=== PATIENT | female | born 1970 | race Caucasian/White ===

== ENCOUNTER 2020-08-15 23:01 | Inpatient (IN) | payer BC ==
[2020-08-15] MEDS ORDERED: Ondansetron 4 MG Tab.DIS PO ONE (23:06)
--- NOTE | 2020-08-15 23:25 | EDM.PDOC ---
ED HPI GENERAL MEDICAL PROBLEM - General Chief Complaint: General Stated Complaint: doesn't feel well Time Seen by Provider: 08/15/20 23:04 Source of Information: Reports: Patient History Limitations: Reports: No Limitations - History of Present Illness INITIAL COMMENTS - FREE TEXT/NARRATIVE: This patient is a 50 year old female that presents to the ER. Patient reports that started 2 days ago with fever, body aches, frontal headache. She reports today started with sinus pressure, congestion. Patient reports also the past 2 days having upper abdominal pain RUQ, LUQ. She reports with it is nausea and dry heaves. She reports she can not vomit due to hiatal hernia. She also reports having diarrhea today. Patient reports that on the 18 of July having back pain and dysuria that felt like a UTI like she has had before. Patient reports that she saw PCP and UA was negative. She reports about 2 weeks later she continued to have the symptoms and saw PCP again and UA was negative, so was placed on vaginal estrogen at that time. Patient reports she continues to have this lower back pain, but denies all other urinary symptoms at this time. Patient reports she has been taking Tylenol and ASA for her fever. She reports fever as high as 103 measured at home earlier. Onset Date: 08/13/20 Duration: Day(s): (2) Location: Reports: Face, Abdomen, Back, Generalized Quality: Reports: Ache, Pressure Severity: Moderate Improves with: Reports: None Worsens with: Reports: None Associated Symptoms: Reports: Fever/Chills, Headaches, Malaise, Nausea/Vomiting. Denies: Confusion, Chest Pain, Cough, cough w sputum, Diaphoresis, Loss of Appetite, Rash, Seizure, Shortness of Breath, Syncope, Weakness Treatments MANAGER OPERATING: Reports: Acetaminophen, Aspirin - Related Data Allergies Allergy/AdvReac Type Severity Reaction Status Date / Time meperidine HCl [From Demerol] Allergy Hives Verified 08/15/20 23:07 Home Meds: Home Meds Cholecalciferol (Vitamin D3) [Vitamin D] 2,000 units PO DAILY 10/15/13 [History] Fluticasone Propionate [Flonase] 2 sprays NASBOTH DAILY 10/15/13 [History] Hydrochlorothiazide 25 mg PO DAILY 10/15/13 [History] Levothyroxine Sodium [Synthroid] 150 mcg PO DAILY 10/15/13 [History] Lubiprostone [Amitiza] 8 mcg PO BID 08/15/20 [History] estradioL [Estradiol] 0.1 mg VAG DAILY 08/15/20 [History] Past Medical History Endocrine/Metabolic History: Reports: Hypothyroidism - Infectious Disease History Infectious Disease History: Reports: None - Past Surgical History GI Surgical History: Reports: Cholecystectomy, Hernia Repair/Other Female Surgical History: Reports: Section, Hysterectomy, Other (See Below) Other Female Surgeries/Procedures: bladder/rectum repair Social & Family History - Tobacco Use Tobacco Use Status *Q: Never Tobacco User - Caffeine Use Caffeine Use: Reports: Coffee, Soda - Recreational Drug Use Recreational Drug Use: No ED ROS GENERAL - Review of Systems Review Of Systems: See Below Constitutional: Reports: Fever, Chills, Malaise HEENT: Reports: Sinus Problem Respiratory: Reports: No Symptoms Cardiovascular: Reports: No Symptoms Endocrine: Reports: No Symptoms GI/Abdominal: Reports: Abdominal Pain, Diarrhea, Nausea. Denies: Vomiting : Denies: Dysuria, Frequency, Hematuria, Incontinence, Pain, Urgency, Urinary Retention Musculoskeletal: Reports: Back Pain (lower), Muscle Pain (generalized body aches) Skin: Reports: No Symptoms Neurological: Reports: Headache (frontal). Denies: Confusion, Dizziness, Numbness, Seizure, Syncope, Tingling, Tremors, Trouble Speaking, Difficulty Walking, Weakness, Change in Speech, Gait Disturbance Psychiatric: Reports: No Symptoms Hematologic/Lymphatic: Reports: No Symptoms Immunologic: Reports: No Symptoms ED EXAM, GENERAL - Physical Exam Exam: See Below Exam Limited By: No Limitations General Appearance: Alert, WD/WN, No Apparent Distress Eye Exam: Bilateral Eye: Normal Inspection, PERRL Ears: Normal External Exam, Normal Canal, Hearing Grossly Normal, Normal TMs Ear Exam: Bilateral Ear: Auricle Normal, Canal Normal, TM normal Nose: Normal Inspection, Normal Mucosa, No Blood Throat/Mouth: Normal Inspection, Normal Lips, Normal Teeth, Normal Gums, Normal Oropharynx, Normal Voice, No Airway Compromise Head: Atraumatic, Normocephalic, Sinus Tenderness (mild maxillary bilaterally) Neck: Normal Inspection, Supple, Non-Tender, Full Range of Motion Respiratory/Chest: No Respiratory Distress, Lungs Clear, Normal Breath Sounds, No Accessory Muscle Use Cardiovascular: Normal Peripheral Pulses, Regular Rate, Rhythm, No Edema, No Gallop, No JVD, No Murmur, No Rub Peripheral Pulses: 2+: Radial (L), Radial (R), Posterior Tibial (L), Posterior Tibial (R) GI/Abdominal: Normal Bowel Sounds, Soft, Non-Tender, No Organomegaly, No Distention, No Abnormal Bruit, No Mass, Pelvis Stable. No: Guarding, Rigid, Rebound, Tender (Female) Exam: Deferred Rectal (Female) Exam: Deferred Back Exam: Normal Inspection, Full Range of Motion, CVA Tenderness (L), CVA Tenderness (R) Extremities: Normal Inspection, Normal Range of Motion, Non-Tender, No Pedal Edema, Normal Capillary Refill Neurological: Alert, Oriented, Normal Cognition, Normal Gait, No Motor/Sensory Deficits Psychiatric: Normal Affect, Normal Mood Skin Exam: Warm, Dry, Intact, Normal Color, No Rash Lymphatic: No Adenopathy Course - Vital Signs Last Recorded V/S: Last Vital Signs Temp 98.4 F 08/15/20 23:01 Pulse 78 08/15/20 23:01 Resp 16 08/15/20 23:01 BP 98/52 L 08/16/20 00:03 Pulse Ox 97 08/15/20 23:01 - Orders/Labs/Meds Orders: Active Orders 24 hr Category Date Time Status CULTURE BLOOD [BC] Stat Lab 08/15/20 23:36 Received CULTURE BLOOD [BC] Stat Lab 08/15/20 23:36 Received CULTURE URINE [RM] Stat Lab 08/15/20 23:05 Received Blood Culture x2 Reflex Set [OM.PC] Stat Oth 08/15/20 23:04 Ordered Labs: Laboratory Tests 08/15/20 08/15/20 08/15/20 Range/Units 23:04 23:04 23:04 WBC 11.2 H (4.0-11.0) 10^3/uL RBC 3.83 L (4.00-5.50) x10^6/uL Hgb 10.5 L (12.0-16.0) g/dL Hct 31.8 L (37.0-47.0) % MCV 83.0 (83.0-97.0) fL MCH 27.4 (27.0-32.0) pg MCHC 33.0 (32.0-36.0) g/dL RDW Coeff of Sherley 13.1 (11.0-15.0) % Plt Count 179 (150-400) 10^3/uL Immature Gran % (Auto) 0.3 (0.0-4.9) % Neut % (Auto) 77.9 H (41-71) % Lymph % (Auto) 10.4 L (24-44) % Clare % (Auto) 11.1 H (0-10) % Eos % (Auto) 0.1 (0-6) % Baso % (Auto) 0.2 (0-1) % Neut # (Auto) 8.72 H (1.80-8.00) x10^3/uL Lymph # (Auto) 1.16 (0.60-5.00) 10^3/uL Clare # (Auto) 1.24 (0.00-1.50) 10^3/uL Eos # (Auto) 0.01 (0.00-1.50) 10^3/uL Baso # (Auto) 0.02 (0.00-0.50) 10^3/uL Immature Gran # (Auto) 0.03 (0.00-0.49) 10^3/uL Sodium 137 (136-145) mEq/L Potassium 2.8 L* D (3.5-5.0) mEq/L Chloride 98 (98-106) mEq/L Carbon Dioxide 30 (21-32) mmol/L BUN 10 (7-18) mg/dL Creatinine 0.9 (0.6-1.0) mg/dL Est Cr Clr Drug Dosing 71.91 mL/min Estimated GFR (MDRD) > 60 (>=60) mL/min Glucose 107 H (75-99) mg/dL Lactic Acid 1.0 (0.4-2.0) mmol/L Calcium 8.1 L (8.4-10.1) mg/dL Magnesium (1.8-2.4) mg/dL Total Bilirubin 0.5 (0.0-1.0) mg/dL AST 16 (15-37) U/L ALT 20 (12-78) U/L Alkaline Phosphatase 86 (46-116) U/L Total Protein 6.5 (6.4-8.2) g/dL Albumin 3.1 L (3.4-5.0) g/dL Amylase 26 (25-115) U/L Lipase 48 L (73-393) U/L Urine Color (YELLOW) Urine Appearance (CLEAR) Urine pH (4.5-8.0) Ur Specific [place] (1.003-1.020) Urine Protein (NEGATIVE) mg/dL Urine Glucose (UA) (NEGATIVE) mg/dL Urine Ketones (NEGATIVE) mg/dL Urine Occult Blood (NEGATIVE) Urine Nitrite (NEGATIVE) Urine Bilirubin (NEGATIVE) Urine Urobilinogen (0.2-1.0) EU/dL Ur Leukocyte Esterase (NEGATIVE) Urine RBC (0-5) /HPF Urine WBC (0-5) /HPF Urine Bacteria (NOT SEEN) /HPF Urinalysis Comment SARS CoV-2 RNA Rapid LORENA (NEGATIVE) 08/15/20 08/15/20 08/15/20 Range/Units 23:05 23:36 23:45 WBC (4.0-11.0) 10^3/uL RBC (4.00-5.50) x10^6/uL Hgb (12.0-16.0) g/dL Hct (37.0-47.0) % MCV (83.0-97.0) fL MCH (27.0-32.0) pg MCHC (32.0-36.0) g/dL RDW Coeff of Sherley (11.0-15.0) % Plt Count (150-400) 10^3/uL Immature Gran % (Auto) (0.0-4.9) % Neut % (Auto) (41-71) % Lymph % (Auto) (24-44) % Clare % (Auto) (0-10) % Eos % (Auto) (0-6) % Baso % (Auto) (0-1) % Neut # (Auto) (1.80-8.00) x10^3/uL Lymph # (Auto) (0.60-5.00) 10^3/uL Clare # (Auto) (0.00-1.50) 10^3/uL Eos # (Auto) (0.00-1.50) 10^3/uL Baso # (Auto) (0.00-0.50) 10^3/uL Immature Gran # (Auto) (0.00-0.49) 10^3/uL Sodium (136-145) mEq/L Potassium (3.5-5.0) mEq/L Chloride (98-106) mEq/L Carbon Dioxide (21-32) mmol/L BUN (7-18) mg/dL Creatinine (0.6-1.0) mg/dL Est Cr Clr Drug Dosing mL/min Estimated GFR (MDRD) (>=60) mL/min Glucose (75-99) mg/dL Lactic Acid (0.4-2.0) mmol/L Calcium (8.4-10.1) mg/dL Magnesium 1.9 (1.8-2.4) mg/dL Total Bilirubin (0.0-1.0) mg/dL AST (15-37) U/L ALT (12-78) U/L Alkaline Phosphatase (46-116) U/L Total Protein (6.4-8.2) g/dL Albumin (3.4-5.0) g/dL Amylase (25-115) U/L Lipase (73-393) U/L Urine Color Yellow (YELLOW) Urine Appearance Clear (CLEAR) Urine pH 6.0 (4.5-8.0) Ur Specific [place] 1.010 (1.003-1.020) Urine Protein Negative (NEGATIVE) mg/dL Urine Glucose (UA) Negative (NEGATIVE) mg/dL Urine Ketones Negative (NEGATIVE) mg/dL Urine Occult Blood Trace-intact H (NEGATIVE) Urine Nitrite Positive H (NEGATIVE) Urine Bilirubin Negative (NEGATIVE) Urine Urobilinogen 0.2 (0.2-1.0) EU/dL Ur Leukocyte Esterase Small H (NEGATIVE) Urine RBC 0-5 (0-5) /HPF Urine WBC 30-40 H (0-5) /HPF Urine Bacteria Moderate H (NOT SEEN) /HPF Urinalysis Comment SARS CoV-2 RNA Rapid LORENA Negative (NEGATIVE) Meds: Medications Discontinued Medications Generic Name Dose Route Start Last Admin Trade Name Freq PRN Reason Stop Dose Admin Ondansetron HCl 4 mg 08/15/20 23:06 08/15/20 23:16 Ondansetron 4 Mg Tab.Dis PO 08/15/20 23:07 4 mg ONETIME ONE Administration - Re-Assessments/Exams Free Text/Narrative Re-Assessment/Exam: 08/16/20 00:33 Patietn is nitrate positive. Her BP is low for her, she has a fever, CVA tenderness, elevated wbc, I believe she could be uroseptic with possible pylonephritis. Departure - Departure Time of Disposition: 00:34 Disposition: DC/Tfer to Acute Hospital 02 Condition: Fair Clinical Impression: UTI, Urinary tract infectious disease, Pyelonephritis, Hypokalemia Sepsis Qualifiers: Sepsis type: sepsis due to unspecified organism Sepsis acute organ dysfunction status: with acute organ dysfunction Severe sepsis acute organ dysfunction type: unspecified Severe sepsis shock status: without septic shock Qualified Code(s): A41.9 - Sepsis, unspecified organism; R65.20 - Severe sepsis without septic shock - Discharge Information *PRESCRIPTION DRUG MONITORING PROGRAM REVIEWED*: Not Applicable *COPY OF PRESCRIPTION DRUG MONITORING REPORT IN PATIENT OSCAR: Not Applicable Forms: ED Department Discharge Sepsis Event Note (ED) - Evaluation Sepsis Screening Result: No Definite Risk - Focused Exam Vital Signs: Vital Signs Temp Pulse Resp BP Pulse Ox 08/16/20 00:03 98/52 L 08/15/20 23:01 98.4 F 78 16 108/54 L 97 - My Orders Last 24 Hours: My Active Orders 08/15/20 23:04 Blood Culture x2 Reflex Set [OM.PC] Stat 08/15/20 23:05 CULTURE URINE [RM] Stat 08/15/20 23:36 CULTURE BLOOD [BC] Stat CULTURE BLOOD [BC] Stat - Assessment/Plan Last 24 Hours: My Active Orders 08/15/20 23:04 Blood Culture x2 Reflex Set [OM.PC] Stat 08/15/20 23:05 CULTURE URINE [RM] Stat 08/15/20 23:36 CULTURE BLOOD [BC] Stat CULTURE BLOOD [BC] Stat Plan: PLEASE SEE RN NOTE FOR PFSH PLEASE USE ADMIT H&P ADMIT H&P.
[2020-08-15 23:43] LABS: CHLORIDE,CL 98 mEq/L (98-106); SODIUM,NA 137 mEq/L (136-145)
[2020-08-16] MEDS ORDERED: Potassium Chloride 10 MEQ Tab.ER PO STA ×2 (00:55→09:29)
[2020-08-16] MEDS ORDERED: Ondansetron 4 MG/2 ML SDV IV PRN (00:55)
[2020-08-16] MEDS ORDERED: Sodium Chloride 0.9% 1,000 ML IV SCH ×2 (00:55)
[2020-08-16] MEDS ORDERED: Morphine 2 MG/ML SYRINGE IVPUSH PRN (00:55)
[2020-08-16] MEDS: Levofloxacin/Dextrose 5%-Water 750 MG in Premix Bag 1 BAG IV SCH (01:14)
[2020-08-16] MEDS: Acetaminophen/HYDROcodone 325-5 MG Tab PO PRN ×2 (03:36→07:47)
[2020-08-16] MEDS: Levothyroxine 150 MCG Tab PO SCH (06:11)
[2020-08-16] MEDS: Cholecalciferol (Vitamin D3) 25 MCG Tab PO SCH (07:47)
[2020-08-16] MEDS: Potassium Chloride 10 MEQ Tab.ER PO SCH ×2 (07:47→17:14)
[2020-08-16 07:50] LABS: CHLORIDE,CL 102 mEq/L (98-106); SODIUM,NA 138 mEq/L (136-145)
[2020-08-16] MEDS: Hydrochlorothiazide 25 MG Tab PO SCH (07:50)
[2020-08-16] MEDS ORDERED: Fluticasone Propionate Nasal Spray 16 GM Bottle NASBOTH SCH (08:00)
[2020-08-16] MEDS: Fluticasone Propionate Nasal Spray 16 GM Bottle**OWN MED NASBOTH SCH (09:34)
--- NOTE | 2020-08-16 09:51 | PCM.PN ---
- General Info Date of Service: 08/16/20 Functional Status: Reports: Pain Controlled (with pain medication), Tolerating Diet, Ambulating, Urinating - Review of Systems General: Denies: Fever (not this morning) HEENT: Reports: Sinus Congestion (frontal sinus pressure) Pulmonary: Reports: No Symptoms Cardiovascular: Reports: No Symptoms Gastrointestinal: Reports: Abdominal Pain, Nausea. Denies: Vomiting Genitourinary: Reports: Flank Pain (bilateral) Musculoskeletal: Reports: No Symptoms Skin: Reports: No Symptoms Neurological: Reports: No Symptoms Psychiatric: Reports: No Symptoms - Patient Data Vitals - Most Recent: Last Vital Signs Temp 98.8 F 08/16/20 08:00 Pulse 76 08/16/20 08:00 Resp 18 08/16/20 08:00 BP 103/53 L 08/16/20 08:00 Pulse Ox 96 08/16/20 08:00 Weight - Most Recent: 183 lb 1.6 oz Lab Results Last 24 Hours: Laboratory Results - last 24 hr 08/15/20 08/15/20 08/15/20 Range/Units 23:04 23:04 23:04 WBC 11.2 H (4.0-11.0) 10^3/uL RBC 3.83 L (4.00-5.50) x10^6/uL Hgb 10.5 L (12.0-16.0) g/dL Hct 31.8 L (37.0-47.0) % MCV 83.0 (83.0-97.0) fL MCH 27.4 (27.0-32.0) pg MCHC 33.0 (32.0-36.0) g/dL RDW Coeff of Sherley 13.1 (11.0-15.0) % Plt Count 179 (150-400) 10^3/uL Immature Gran % (Auto) 0.3 (0.0-4.9) % Neut % (Auto) 77.9 H (41-71) % Lymph % (Auto) 10.4 L (24-44) % Warren % (Auto) 11.1 H (0-10) % Eos % (Auto) 0.1 (0-6) % Baso % (Auto) 0.2 (0-1) % Neut # (Auto) 8.72 H (1.80-8.00) x10^3/uL Lymph # (Auto) 1.16 (0.60-5.00) 10^3/uL Warren # (Auto) 1.24 (0.00-1.50) 10^3/uL Eos # (Auto) 0.01 (0.00-1.50) 10^3/uL Baso # (Auto) 0.02 (0.00-0.50) 10^3/uL Immature Gran # (Auto) 0.03 (0.00-0.49) 10^3/uL Sodium 137 (136-145) mEq/L Potassium 2.8 L* D (3.5-5.0) mEq/L Chloride 98 (98-106) mEq/L Carbon Dioxide 30 (21-32) mmol/L BUN 10 (7-18) mg/dL Creatinine 0.9 (0.6-1.0) mg/dL Est Cr Clr Drug Dosing 71.91 mL/min Estimated GFR (MDRD) > 60 (>=60) mL/min Glucose 107 H (75-99) mg/dL Lactic Acid 1.0 (0.4-2.0) mmol/L Calcium 8.1 L (8.4-10.1) mg/dL Magnesium (1.8-2.4) mg/dL Total Bilirubin 0.5 (0.0-1.0) mg/dL AST 16 (15-37) U/L ALT 20 (12-78) U/L Alkaline Phosphatase 86 (46-116) U/L C-Reactive Protein (0.2-0.8) mg/dL Total Protein 6.5 (6.4-8.2) g/dL Albumin 3.1 L (3.4-5.0) g/dL Amylase 26 (25-115) U/L Lipase 48 L (73-393) U/L Urine Color (YELLOW) Urine Appearance (CLEAR) Urine pH (4.5-8.0) Ur Specific [place] (1.003-1.020) Urine Protein (NEGATIVE) mg/dL Urine Glucose (UA) (NEGATIVE) mg/dL Urine Ketones (NEGATIVE) mg/dL Urine Occult Blood (NEGATIVE) Urine Nitrite (NEGATIVE) Urine Bilirubin (NEGATIVE) Urine Urobilinogen (0.2-1.0) EU/dL Ur Leukocyte Esterase (NEGATIVE) Urine RBC (0-5) /HPF Urine WBC (0-5) /HPF Urine Bacteria (NOT SEEN) /HPF Urinalysis Comment SARS CoV-2 RNA Rapid LORENA (NEGATIVE) 08/15/20 08/15/20 08/15/20 Range/Units 23:05 23:36 23:45 WBC (4.0-11.0) 10^3/uL RBC (4.00-5.50) x10^6/uL Hgb (12.0-16.0) g/dL Hct (37.0-47.0) % MCV (83.0-97.0) fL MCH (27.0-32.0) pg MCHC (32.0-36.0) g/dL RDW Coeff of Sherley (11.0-15.0) % Plt Count (150-400) 10^3/uL Immature Gran % (Auto) (0.0-4.9) % Neut % (Auto) (41-71) % Lymph % (Auto) (24-44) % Warren % (Auto) (0-10) % Eos % (Auto) (0-6) % Baso % (Auto) (0-1) % Neut # (Auto) (1.80-8.00) x10^3/uL Lymph # (Auto) (0.60-5.00) 10^3/uL Warren # (Auto) (0.00-1.50) 10^3/uL Eos # (Auto) (0.00-1.50) 10^3/uL Baso # (Auto) (0.00-0.50) 10^3/uL Immature Gran # (Auto) (0.00-0.49) 10^3/uL Sodium (136-145) mEq/L Potassium (3.5-5.0) mEq/L Chloride (98-106) mEq/L Carbon Dioxide (21-32) mmol/L BUN (7-18) mg/dL Creatinine (0.6-1.0) mg/dL Est Cr Clr Drug Dosing mL/min Estimated GFR (MDRD) (>=60) mL/min Glucose (75-99) mg/dL Lactic Acid (0.4-2.0) mmol/L Calcium (8.4-10.1) mg/dL Magnesium 1.9 (1.8-2.4) mg/dL Total Bilirubin (0.0-1.0) mg/dL AST (15-37) U/L ALT (12-78) U/L Alkaline Phosphatase (46-116) U/L C-Reactive Protein (0.2-0.8) mg/dL Total Protein (6.4-8.2) g/dL Albumin (3.4-5.0) g/dL Amylase (25-115) U/L Lipase (73-393) U/L Urine Color Yellow (YELLOW) Urine Appearance Clear (CLEAR) Urine pH 6.0 (4.5-8.0) Ur Specific [place] 1.010 (1.003-1.020) Urine Protein Negative (NEGATIVE) mg/dL Urine Glucose (UA) Negative (NEGATIVE) mg/dL Urine Ketones Negative (NEGATIVE) mg/dL Urine Occult Blood Trace-intact H (NEGATIVE) Urine Nitrite Positive H (NEGATIVE) Urine Bilirubin Negative (NEGATIVE) Urine Urobilinogen 0.2 (0.2-1.0) EU/dL Ur Leukocyte Esterase Small H (NEGATIVE) Urine RBC 0-5 (0-5) /HPF Urine WBC 30-40 H (0-5) /HPF Urine Bacteria Moderate H (NOT SEEN) /HPF Urinalysis Comment SARS CoV-2 RNA Rapid LORENA Negative (NEGATIVE) 08/16/20 08/16/20 Range/Units 05:00 05:00 WBC 7.2 (4.0-11.0) 10^3/uL RBC 3.38 L (4.00-5.50) x10^6/uL Hgb 9.2 L (12.0-16.0) g/dL Hct 28.2 L (37.0-47.0) % MCV 83.4 (83.0-97.0) fL MCH 27.2 (27.0-32.0) pg MCHC 32.6 (32.0-36.0) g/dL RDW Coeff of Sherley 13.1 (11.0-15.0) % Plt Count 135 L (150-400) 10^3/uL Immature Gran % (Auto) 0.3 (0.0-4.9) % Neut % (Auto) 78.0 H (41-71) % Lymph % (Auto) 8.6 L (24-44) % Warren % (Auto) 12.9 H (0-10) % Eos % (Auto) 0.1 (0-6) % Baso % (Auto) 0.1 (0-1) % Neut # (Auto) 5.61 (1.80-8.00) x10^3/uL Lymph # (Auto) 0.62 (0.60-5.00) 10^3/uL Warren # (Auto) 0.93 (0.00-1.50) 10^3/uL Eos # (Auto) 0.01 (0.00-1.50) 10^3/uL Baso # (Auto) 0.01 (0.00-0.50) 10^3/uL Immature Gran # (Auto) 0.02 (0.00-0.49) 10^3/uL Sodium 138 (136-145) mEq/L Potassium 3.0 L (3.5-5.0) mEq/L Chloride 102 (98-106) mEq/L Carbon Dioxide 31 (21-32) mmol/L BUN 7 (7-18) mg/dL Creatinine 0.8 (0.6-1.0) mg/dL Est Cr Clr Drug Dosing 80.90 mL/min Estimated GFR (MDRD) > 60 (>=60) mL/min Glucose 120 H (75-99) mg/dL Lactic Acid (0.4-2.0) mmol/L Calcium 7.5 L (8.4-10.1) mg/dL Magnesium (1.8-2.4) mg/dL Total Bilirubin (0.0-1.0) mg/dL AST (15-37) U/L ALT (12-78) U/L Alkaline Phosphatase (46-116) U/L C-Reactive Protein 9.5 H (0.2-0.8) mg/dL Total Protein (6.4-8.2) g/dL Albumin (3.4-5.0) g/dL Amylase (25-115) U/L Lipase (73-393) U/L Urine Color (YELLOW) Urine Appearance (CLEAR) Urine pH (4.5-8.0) Ur Specific [place] (1.003-1.020) Urine Protein (NEGATIVE) mg/dL Urine Glucose (UA) (NEGATIVE) mg/dL Urine Ketones (NEGATIVE) mg/dL Urine Occult Blood (NEGATIVE) Urine Nitrite (NEGATIVE) Urine Bilirubin (NEGATIVE) Urine Urobilinogen (0.2-1.0) EU/dL Ur Leukocyte Esterase (NEGATIVE) Urine RBC (0-5) /HPF Urine WBC (0-5) /HPF Urine Bacteria (NOT SEEN) /HPF Urinalysis Comment SARS CoV-2 RNA Rapid LORENA (NEGATIVE) Srinivasan Results Last 24 Hours: Microbiology 08/15/20 23:05 Urine Culture - Preliminary Urine, Voided Gram Negative Rods 08/15/20 23:36 Influenza Type A Antigen Screen - Final Nasopharyngeal Swab NEGATIVE INFLUENZA A VIRUS AG REFERENCE RANGE: NEGATIVE Influenza Type B Antigen Screen - Final NEGATIVE INFLUENZA B VIRUS AG REFERENCE RANGE: NEGATIVE Med Orders - Current: Current Medications Acetaminophen (Acetaminophen 325 Mg Tab) 650 mg PO Q4H PRN PRN Reason: Pain (Mild 1-3)/fever Hydrocodone Bitart/Acetaminophen (Acetaminophen/Hydrocodone 325-5 Mg Tab) 1 tab PO Q4H PRN PRN Reason: Pain (moderate 4-6) Last Admin: 08/16/20 07:47 Dose: 1 tab Documented by: Cholecalciferol (Cholecalciferol (Vitamin D3) 25 Mcg Tab) 50 mcg PO DAILY [facility] Last Admin: 08/16/20 07:47 Dose: 50 mcg Documented by: Fluticasone Propionate (Fluticasone Propionate Nasal [place] 16 Gm BottleOwn Med) 0 gm NASBOTH DAILY [facility] Last Admin: 08/16/20 09:34 Dose: 2 spray Documented by: Hydrochlorothiazide (Hydrochlorothiazide 25 Mg Tab) 25 mg PO DAILY [facility] Last Admin: 08/16/20 07:50 Dose: Not Given Documented by: Sodium Chloride (Normal Saline) 1,000 mls @ 100 mls/hr IV ASDIRECTED [facility] Stop: 08/16/20 10:54 Last Admin: 08/16/20 03:46 Dose: 100 mls/hr Documented by: Sodium Chloride (Normal Saline) 1,000 mls @ 999 mls/hr IV .BOLUS [facility] Last Admin: 08/16/20 01:08 Dose: 999 mls/hr Documented by: Levofloxacin/Dextrose 750 mg/ (Premix) 150 mls @ 100 mls/hr IV Q24H [facility] Last Admin: 08/16/20 01:14 Dose: 100 mls/hr Documented by: Ibuprofen (Ibuprofen 200 Mg Tab) 600 mg PO Q6H PRN PRN Reason: Pain/Fever Levothyroxine Sodium (Levothyroxine 150 Mcg Tab) 150 mcg PO ACBREAKFAST [facility] Last Admin: 08/16/20 06:11 Dose: 150 mcg Documented by: Morphine Sulfate (Morphine 2 Mg/Ml Syringe) 2 mg IVPUSH Q2H PRN PRN Reason: Pain (severe 7-10) Non-Formulary Medication (Lubiprostone [Amitiza]) 8 mcg PO BID [facility] Ondansetron HCl (Ondansetron 4 Mg/2 Ml Sdv) 4 mg IV Q6H PRN PRN Reason: Nausea/Vomiting Potassium Chloride (Potassium Chloride 10 Meq Tab.Er) 20 meq PO BIDMEALS [facility] Last Admin: 08/16/20 07:47 Dose: 20 meq Documented by: Discontinued Medications Fluticasone Propionate (Fluticasone Propionate Nasal [place] 16 Gm Bottle) 0 gm NASBOTH DAILY [facility] Ondansetron HCl (Ondansetron 4 Mg Tab.Dis) 4 mg PO ONETIME ONE Stop: 08/15/20 23:07 Last Admin: 08/15/20 23:16 Dose: 4 mg Documented by: Potassium Chloride (Potassium Chloride 10 Meq Tab.Er) 40 meq PO NOW STA Stop: 08/16/20 00:56 Last Admin: 08/16/20 01:12 Dose: 40 meq Documented by: Potassium Chloride (Potassium Chloride 10 Meq Tab.Er) 20 meq PO NOW STA Stop: 08/16/20 09:30 - Exam General: Alert, Oriented, Cooperative, No Acute Distress Neck: Supple, Trachea Midline Lungs: Clear to Auscultation, Normal Respiratory Effort Cardiovascular: Regular Rate, Regular Rhythm, No Murmurs GI/Abdominal Exam: Normal Bowel Sounds, Soft, Non-Tender, No Organomegaly, No Distention, No Mass, Pelvis Stable Back Exam: Normal Inspection, Full Range of Motion, CVA Tenderness (L), CVA Tenderness (R) Extremities: Normal Inspection, Normal Range of Motion, Non-Tender, No Pedal Edema, Normal Capillary Refill Peripheral Pulses: 2+: Radial (L), Radial (R), Posterior Tibial (L), Posterior Tibial (R), Dorsalis Pedis (L), Dorsalis Pedis (R) Skin: Warm, Dry, Intact Neurological: No New Focal Deficit, Normal Gait, Normal Speech Psy/Mental Status: Alert, Normal Affect, Normal Mood - Patient Data Lab Results Last 24 hrs: Laboratory Results - last 24 hr 08/15/20 08/15/20 08/15/20 Range/Units 23:04 23:04 23:04 WBC 11.2 H (4.0-11.0) 10^3/uL RBC 3.83 L (4.00-5.50) x10^6/uL Hgb 10.5 L (12.0-16.0) g/dL Hct 31.8 L (37.0-47.0) % MCV 83.0 (83.0-97.0) fL MCH 27.4 (27.0-32.0) pg MCHC 33.0 (32.0-36.0) g/dL RDW Coeff of Sherley 13.1 (11.0-15.0) % Plt Count 179 (150-400) 10^3/uL Immature Gran % (Auto) 0.3 (0.0-4.9) % Neut % (Auto) 77.9 H (41-71) % Lymph % (Auto) 10.4 L (24-44) % Warren % (Auto) 11.1 H (0-10) % Eos % (Auto) 0.1 (0-6) % Baso % (Auto) 0.2 (0-1) % Neut # (Auto) 8.72 H (1.80-8.00) x10^3/uL Lymph # (Auto) 1.16 (0.60-5.00) 10^3/uL Warren # (Auto) 1.24 (0.00-1.50) 10^3/uL Eos # (Auto) 0.01 (0.00-1.50) 10^3/uL Baso # (Auto) 0.02 (0.00-0.50) 10^3/uL Immature Gran # (Auto) 0.03 (0.00-0.49) 10^3/uL Sodium 137 (136-145) mEq/L Potassium 2.8 L* D (3.5-5.0) mEq/L Chloride 98 (98-106) mEq/L Carbon Dioxide 30 (21-32) mmol/L BUN 10 (7-18) mg/dL Creatinine 0.9 (0.6-1.0) mg/dL Est Cr Clr Drug Dosing 71.91 mL/min Estimated GFR (MDRD) > 60 (>=60) mL/min Glucose 107 H (75-99) mg/dL Lactic Acid 1.0 (0.4-2.0) mmol/L Calcium 8.1 L (8.4-10.1) mg/dL Magnesium (1.8-2.4) mg/dL Total Bilirubin 0.5 (0.0-1.0) mg/dL AST 16 (15-37) U/L ALT 20 (12-78) U/L Alkaline Phosphatase 86 (46-116) U/L C-Reactive Protein (0.2-0.8) mg/dL Total Protein 6.5 (6.4-8.2) g/dL Albumin 3.1 L (3.4-5.0) g/dL Amylase 26 (25-115) U/L Lipase 48 L (73-393) U/L Urine Color (YELLOW) Urine Appearance (CLEAR) Urine pH (4.5-8.0) Ur Specific [place] (1.003-1.020) Urine Protein (NEGATIVE) mg/dL Urine Glucose (UA) (NEGATIVE) mg/dL Urine Ketones (NEGATIVE) mg/dL Urine Occult Blood (NEGATIVE) Urine Nitrite (NEGATIVE) Urine Bilirubin (NEGATIVE) Urine Urobilinogen (0.2-1.0) EU/dL Ur Leukocyte Esterase (NEGATIVE) Urine RBC (0-5) /HPF Urine WBC (0-5) /HPF Urine Bacteria (NOT SEEN) /HPF Urinalysis Comment SARS CoV-2 RNA Rapid LORENA (NEGATIVE) 08/15/20 08/15/20 08/15/20 Range/Units 23:05 23:36 23:45 WBC (4.0-11.0) 10^3/uL RBC (4.00-5.50) x10^6/uL Hgb (12.0-16.0) g/dL Hct (37.0-47.0) % MCV (83.0-97.0) fL MCH (27.0-32.0) pg MCHC (32.0-36.0) g/dL RDW Coeff of Sherley (11.0-15.0) % Plt Count (150-400) 10^3/uL Immature Gran % (Auto) (0.0-4.9) % Neut % (Auto) (41-71) % Lymph % (Auto) (24-44) % Warren % (Auto) (0-10) % Eos % (Auto) (0-6) % Baso % (Auto) (0-1) % Neut # (Auto) (1.80-8.00) x10^3/uL Lymph # (Auto) (0.60-5.00) 10^3/uL Warren # (Auto) (0.00-1.50) 10^3/uL Eos # (Auto) (0.00-1.50) 10^3/uL Baso # (Auto) (0.00-0.50) 10^3/uL Immature Gran # (Auto) (0.00-0.49) 10^3/uL Sodium (136-145) mEq/L Potassium (3.5-5.0) mEq/L Chloride (98-106) mEq/L Carbon Dioxide (21-32) mmol/L BUN (7-18) mg/dL Creatinine (0.6-1.0) mg/dL Est Cr Clr Drug Dosing mL/min Estimated GFR (MDRD) (>=60) mL/min Glucose (75-99) mg/dL Lactic Acid (0.4-2.0) mmol/L Calcium (8.4-10.1) mg/dL Magnesium 1.9 (1.8-2.4) mg/dL Total Bilirubin (0.0-1.0) mg/dL AST (15-37) U/L ALT (12-78) U/L Alkaline Phosphatase (46-116) U/L C-Reactive Protein (0.2-0.8) mg/dL Total Protein (6.4-8.2) g/dL Albumin (3.4-5.0) g/dL Amylase (25-115) U/L Lipase (73-393) U/L Urine Color Yellow (YELLOW) Urine Appearance Clear (CLEAR) Urine pH 6.0 (4.5-8.0) Ur Specific [place] 1.010 (1.003-1.020) Urine Protein Negative (NEGATIVE) mg/dL Urine Glucose (UA) Negative (NEGATIVE) mg/dL Urine Ketones Negative (NEGATIVE) mg/dL Urine Occult Blood Trace-intact H (NEGATIVE) Urine Nitrite Positive H (NEGATIVE) Urine Bilirubin Negative (NEGATIVE) Urine Urobilinogen 0.2 (0.2-1.0) EU/dL Ur Leukocyte Esterase Small H (NEGATIVE) Urine RBC 0-5 (0-5) /HPF Urine WBC 30-40 H (0-5) /HPF Urine Bacteria Moderate H (NOT SEEN) /HPF Urinalysis Comment SARS CoV-2 RNA Rapid LORENA Negative (NEGATIVE) 08/16/20 08/16/20 Range/Units 05:00 05:00 WBC 7.2 (4.0-11.0) 10^3/uL RBC 3.38 L (4.00-5.50) x10^6/uL Hgb 9.2 L (12.0-16.0) g/dL Hct 28.2 L (37.0-47.0) % MCV 83.4 (83.0-97.0) fL MCH 27.2 (27.0-32.0) pg MCHC 32.6 (32.0-36.0) g/dL RDW Coeff of Sherley 13.1 (11.0-15.0) % Plt Count 135 L (150-400) 10^3/uL Immature Gran % (Auto) 0.3 (0.0-4.9) % Neut % (Auto) 78.0 H (41-71) % Lymph % (Auto) 8.6 L (24-44) % Warren % (Auto) 12.9 H (0-10) % Eos % (Auto) 0.1 (0-6) % Baso % (Auto) 0.1 (0-1) % Neut # (Auto) 5.61 (1.80-8.00) x10^3/uL Lymph # (Auto) 0.62 (0.60-5.00) 10^3/uL Warren # (Auto) 0.93 (0.00-1.50) 10^3/uL Eos # (Auto) 0.01 (0.00-1.50) 10^3/uL Baso # (Auto) 0.01 (0.00-0.50) 10^3/uL Immature Gran # (Auto) 0.02 (0.00-0.49) 10^3/uL Sodium 138 (136-145) mEq/L Potassium 3.0 L (3.5-5.0) mEq/L Chloride 102 (98-106) mEq/L Carbon Dioxide 31 (21-32) mmol/L BUN 7 (7-18) mg/dL Creatinine 0.8 (0.6-1.0) mg/dL Est Cr Clr Drug Dosing 80.90 mL/min Estimated GFR (MDRD) > 60 (>=60) mL/min Glucose 120 H (75-99) mg/dL Lactic Acid (0.4-2.0) mmol/L Calcium 7.5 L (8.4-10.1) mg/dL Magnesium (1.8-2.4) mg/dL Total Bilirubin (0.0-1.0) mg/dL AST (15-37) U/L ALT (12-78) U/L Alkaline Phosphatase (46-116) U/L C-Reactive Protein 9.5 H (0.2-0.8) mg/dL Total Protein (6.4-8.2) g/dL Albumin (3.4-5.0) g/dL Amylase (25-115) U/L Lipase (73-393) U/L Urine Color (YELLOW) Urine Appearance (CLEAR) Urine pH (4.5-8.0) Ur Specific [place] (1.003-1.020) Urine Protein (NEGATIVE) mg/dL Urine Glucose (UA) (NEGATIVE) mg/dL Urine Ketones (NEGATIVE) mg/dL Urine Occult Blood (NEGATIVE) Urine Nitrite (NEGATIVE) Urine Bilirubin (NEGATIVE) Urine Urobilinogen (0.2-1.0) EU/dL Ur Leukocyte Esterase (NEGATIVE) Urine RBC (0-5) /HPF Urine WBC (0-5) /HPF Urine Bacteria (NOT SEEN) /HPF Urinalysis Comment SARS CoV-2 RNA Rapid LORENA (NEGATIVE) Result Diagrams: 08/16/20 05:00 08/16/20 05:00 Srinivasan Results Last 24 hrs: Microbiology 08/15/20 23:05 Urine Culture - Preliminary Urine, Voided Gram Negative Rods 08/15/20 23:36 Influenza Type A Antigen Screen - Final Nasopharyngeal Swab NEGATIVE INFLUENZA A VIRUS AG REFERENCE RANGE: NEGATIVE Influenza Type B Antigen Screen - Final NEGATIVE INFLUENZA B VIRUS AG REFERENCE RANGE: NEGATIVE Sepsis Event Note - Evaluation Sepsis Screening Result: No Definite Risk - Focused Exam Vital Signs: Vital Signs Temp Pulse Resp BP BP Pulse Ox 08/16/20 08:00 98.8 F 76 18 103/53 L 96 08/16/20 05:20 98.6 F 08/16/20 04:00 99.7 F 08/16/20 03:30 100.1 F 108 H 20 105/49 L 98 08/16/20 00:03 98/52 L 08/15/20 23:01 98.4 F 78 16 108/54 L 97 - Problem List Review Problem List Initiated/Reviewed/Updated: Yes - My Orders Last 24 Hours: My Active Orders 08/15/20 23:04 Blood Culture x2 Reflex Set [OM.PC] Stat 08/15/20 23:05 CULTURE URINE [RM] Stat 08/15/20 23:36 CULTURE BLOOD [BC] Stat CULTURE BLOOD [BC] Stat 08/16/20 00:38 Resuscitation Status Routine 08/16/20 00:55 Acetaminophen [TylenoL] 650 mg PO Q4H PRN Acetaminophen/HYDROcodone [[place] 325-5 MG] 1 tab PO Q4H PRN Ibuprofen [Motrin] 600 mg PO Q6H PRN Levofloxacin/Dextrose 5%-Water [Levaquin in D5W 750 MG/150 ML] 750 mg Premix Bag 1 bag IV Q24H Morphine 2 mg IVPUSH Q2H PRN Ondansetron [Zofran] 4 mg IV Q6H PRN Sodium Chloride 0.9% [Normal Saline] 1,000 ml IV .BOLUS Sodium Chloride 0.9% [Normal Saline] 1,000 ml IV ASDIRECTED 08/16/20 00:55 Patient Status [ADT] Routine Ambulate [RC] .PRN Ambulate [RC] .PRN Notify Provider Vital Signs [RC] .PRN Oxygen Therapy [RC] .PRN Vital Signs [RC] 0000,0400,0800,1200,1600,2000 08/16/20 07:00 Levothyroxine 150 mcg PO ACBREAKFAST 08/16/20 Breakfast Regular Diet [DIET] Cholecalciferol (Vitamin D3) [Vitamin D3] 50 mcg PO DAILY Fluticasone Propionate [Flonase] 0 gm NASBOTH DAILY Lubiprostone [Amitiza] 8 mcg PO BID Potassium Chloride [Klor-Con 10] 20 meq PO BIDMEALS hydroCHLOROthiazide 25 mg PO DAILY 08/17/20 05:00 BASIC METABOLIC PANEL,BMP [CHEM] DAILY C-REACTIVE PROTEIN [CHEM] DAILY CBC WITH AUTO DIFF [HEME] DAILY 08/18/20 05:00 BASIC METABOLIC PANEL,BMP [CHEM] DAILY C-REACTIVE PROTEIN [CHEM] DAILY CBC WITH AUTO DIFF [HEME] DAILY - Plan Plan:: 08/16/21 0930am This patient was admitted early this morning for Urosepsis. The patient this morning reports that she is feeling a little better. She reports that she does not feel like she has a fever this morning. She reports that she continues to have lower back pain, but reports the pain medication helps with that. The patient labs yesterday were hgb 10.5, potassium 2.8, ca 8.1, mg normal at 1.9. When admitted she was given 40meq potassium chloride PO, potassium today is 3.0, so improved slightly. I added additional PO potassium this morning and started her BID 20meq. The patient denies chest pain, palpitations, muscle cramps. Her CA is 7.5 today, will continue to monitor. She did get NS 1L Bolus, then additional 1L. She has been drinking a lot of water this morning, 1200ml since being awake at 7am. Will continue to monitor her CA and K+ serum levels. At this time, will continue PO potassium. As I see this continuing to improve with fever elimination and PO potassium replacement. She is also not NPO. I have not started any more fluids due to CR/BUN labs normal, patient drinking well. Will continue current abx treatment and await culture report on urine. No DVT preventative after further discussion with patient on risk vs benefits. She is ambulatory and encouraged to ambulate a lot throughout the hospital, she as agreed to do this. Will continue admit and Dr. De La Torre will see this patient in the morning.
[2020-08-16] MEDS: Acetaminophen 325 MG Tab PO PRN (14:37)
[2020-08-16] MEDS: LUBIPROSTONE 8 MCG PO SCH (17:14)
[2020-08-16] MEDS: Ibuprofen 200 MG Tab PO PRN (17:25)
[2020-08-17] MEDS: Levofloxacin/Dextrose 5%-Water 750 MG in Premix Bag 1 BAG IV SCH (00:16)
[2020-08-17] MEDS: Temazepam 15 MG Cap PO PRN ×2 (01:43→22:28)
[2020-08-17] MEDS: Ibuprofen 200 MG Tab PO PRN (02:45)
[2020-08-17] MEDS: Levothyroxine 150 MCG Tab PO SCH (06:16)
[2020-08-17] MEDS: Potassium Chloride 10 MEQ Tab.ER PO SCH (07:21)
[2020-08-17] MEDS: Cholecalciferol (Vitamin D3) 25 MCG Tab PO SCH (07:21)
[2020-08-17] MEDS: LUBIPROSTONE 8 MCG PO SCH ×3 (07:22→17:36)
[2020-08-17] MEDS: Fluticasone Propionate Nasal Spray 16 GM Bottle**OWN MED NASBOTH SCH (07:22)
[2020-08-17 07:28] LABS: CHLORIDE,CL 106 mEq/L (98-106); SODIUM,NA 141 mEq/L (136-145)
[2020-08-17] MEDS: Hydrochlorothiazide 25 MG Tab PO SCH (07:46)
[2020-08-17] MEDS: Pantoprazole 40 MG Vial IVPUSH SCH ×2 (11:08→19:51)
[2020-08-17] MEDS: cefTRIAXone 2 GM Vial IVPUSH SCH (11:08)
--- NOTE | 2020-08-17 12:08 | PN ---
DATE: 08/17/2020 S: Vaishnavi was admitted by Rod on the for urosepsis. She has a urine culture showing E. coli. She presented with typical weakness, fevers, nausea, and back pain. Urine was positive. Her white count was elevated. I believe her lactic acid was normal. She has been on IV Levaquin for the last 3 days and clinically is starting to do better. She did spike another temp earlier this morning of 101.2. Overall, she does feel improved. She does have a history of peptic ulcer disease and she took a lot of anti-inflammatories prior to coming to our facility and she is complaining of some epigastric pain. No melena or hematochezia. O: VITAL SIGNS: Show her to be afebrile. BP 114/61. HEENT: Grossly benign. NECK: Veins are flat. LUNGS: Clear. CARDIAC: Tones regular. ABDOMEN: Appears tender in the mid epigastrium, otherwise benign. Her bowel sounds are adequate and present throughout. EXTREMITIES: No peripheral edema is seen. ASSESSMENT: 1. UROSEPSIS SECONDARY TO ESCHERICHIA COLI. 2. EPIGASTRIC PAIN, LIKELY GASTRITIS SECONDARY TO NSAIDS. 3. HYPOKALEMIA, RESOLVED. P: The patient will be switched from Levaquin to Rocephin as sensitivity shows the E. coli is sensitive to cephalosporins. We will start her on some IV Protonix with her history of peptic ulcer disease and her use of NSAIDs prior to arrival. Encouraged her get up and ambulate today and we will continue to monitor. Expect her to hopefully be home by tomorrow. MARILOU/PAULA /[id number]
[2020-08-17] MEDS: Acetaminophen 325 MG Tab PO PRN ×2 (15:03→22:28)
[2020-08-17] MEDS: Acetaminophen/HYDROcodone 325-5 MG Tab PO PRN (19:51)
[2020-08-18] MEDS: Levothyroxine 150 MCG Tab PO SCH (06:33)
[2020-08-18 07:17] LABS: CHLORIDE,CL 105 mEq/L (98-106); SODIUM,NA 142 mEq/L (136-145)
[2020-08-18 07:39] VITALS: BP 122/64; PULSE 74
[2020-08-18] MEDS ORDERED: Potassium Chloride 10 MEQ Tab.ER PO SCH (08:00)
[2020-08-18] MEDS: Pantoprazole 40 MG Vial IVPUSH SCH (08:08)
[2020-08-18] MEDS: Fluticasone Propionate Nasal Spray 16 GM Bottle**OWN MED NASBOTH SCH (08:08)
[2020-08-18] MEDS: LUBIPROSTONE 8 MCG PO SCH (08:09)
[2020-08-18] MEDS: Cholecalciferol (Vitamin D3) 25 MCG Tab PO SCH (08:10)
[2020-08-18] MEDS: cefTRIAXone 2 GM Vial IVPUSH SCH (10:35)
--- NOTE | 2020-08-18 11:48 | DISCH ---
ADMISSION DIAGNOSES: 1. Urosepsis. 2. Pyelonephritis. 3. Hypokalemia. DISCHARGE DIAGNOSIS: 1. PYELONEPHRITIS SECONDARY TO ESCHERICHIA COLI. 2. UROSEPSIS. 3. HYPONATREMIA, RESOLVED. 4. EPIGASTRIC PAIN SECONDARY TO GASTRITIS. 5. HYPOTHYROIDISM. HISTORY: The patient is a 50-year-old female who had been having UTI-type symptoms for multiple weeks prior to her presenting at our facility for weakness, fevers, back pain. She was evaluated by Rod Skelton and found to have pyelonephritis. She was admitted to the hospital for appropriate cares. HOSPITAL COURSE: The patient was started on IV Levaquin. Urine culture ultimately showed E. coli. She did have a brief amount of hypokalemia from admit and was replaced quickly, and within 2 days, she has had normal potassium levels. She had some low-grade temps during her stay. In the last 24 hours, has not spiked any temps. Her vital signs have been fine. She has been eating well and clinically appears much improved. Her lab work on discharge shows her white count to be stable at 3.3. Her kidney functions are normal. She has an improvement in her CRP down to 4.5. Urine sensitivities showed E. coli sensitive to almost all antibiotics. We did take her off Levaquin and put her on Rocephin for the last 2 days and she will go home on an outpatient course of Ceftin. Prior to the patient's admission, she was taking a lot of Advil for her back pain and she feels like she has some epigastric discomfort. We have empirically put her on some IV Protonix and will send her home on oral Protonix for now. She does have a history of peptic ulcer disease. At this time, she is clinically stable. Her only complaint is that of some early yeast-type symptoms and 2 Diflucan pills will be sent home 150 mg each to be taken a week apart. We will follow her up in the clinic with her primary provider, Jannette Whitley in 1 weeks' time. COMPLICATIONS: During her stay none. CONSULTATIONS: None. DISPOSITION: Discharged home. MARILOU/PAULA /[id number]
== END 2020-08-18 11:25 | disposition home or self-care (01) | DRG 720 ==
LOC: CC.ED 23:01 → UNDOADMOB 08-16 00:09 → CC.MS 08-16 00:09 → OBSVTOIN 08-16 00:09 → INTOOBSV 08-16 00:09 → OBSVTOIN 08-16 00:36 → CC.MS 08-16 00:36
PROVIDERS: ADMIT Nurse Practitioner; ATTEND Family Medicine
DX: A41.51 Sepsis due to Escherichia coli [E. coli] (principal); N12 Tubulo-interstitial nephritis, not specified as acute or chronic; E87.1 Hypo-osmolality and hyponatremia; E03.9 Hypothyroidism, unspecified; K29.70 Gastritis, unspecified, without bleeding; B96.20 Unspecified Escherichia coli [E. coli] as the cause of diseases classified elsewhere; E87.6 Hypokalemia; Z87.11 Personal history of peptic ulcer disease; Z88.5 Allergy status to narcotic agent; Z79.890 Hormone replacement therapy; Z79.899 Other long term (current) drug therapy; Z90.49 Acquired absence of other specified parts of digestive tract; Z90.710 Acquired absence of both cervix and uterus; M54.5 Low back pain; Z20.822 Contact with and (suspected) exposure to COVID-19
CPT/HCPCS: 36415; 80048; 80053; 81001; 82150; 83605; 83690; 83735; 85025; 86140; 87040; 87086; 87088; 87186; 87804; 99284; A9270-GY; C9113; J0696; J1956; J2405; J7030; U0002

== ENCOUNTER 2022-06-04 18:51 | Emergency (ER) | payer BC ==
[2022-06-04 19:01] VITALS: BP 134/59; PULSE 108
[2022-06-04 19:44] LABS: CHLORIDE,CL 101 mEq/L (98-106); SODIUM,NA 141 mEq/L (136-145)
[2022-06-04 19:45] LABS: ESTIMATED GFR 104 mL/min (>=60)
[2022-06-04] MEDS ORDERED: cefTRIAXone 1 GM Vial IVPUSH ONE (20:12)
[2022-06-04] MEDS ORDERED: Take Home: Cefuroxime 250 MG Tab, 2 Tab Pack PO ONE (20:31)
== END 2022-06-04 21:15 | disposition home or self-care (01) ==
LOC: CC.ED 18:51
DX: N30.01 Acute cystitis with hematuria (principal); R19.7 Diarrhea, unspecified; E03.9 Hypothyroidism, unspecified; Z88.5 Allergy status to narcotic agent; Z79.899 Other long term (current) drug therapy; Z20.822 Contact with and (suspected) exposure to COVID-19
CPT/HCPCS: 36415; 80053; 81001; 81003; 85025; 86140; 87086; 87088; 87186; 87804; 96374; 99284; 99284-25; A9270-GY; J0696; U0002

== ENCOUNTER 2023-10-20 07:00 | Day surgery (SDC) | payer BC ==
[2023-10-20] MEDS: Lactated Ringers 1,000 ML IV SCH (07:13)
[2023-10-20] MEDS ORDERED: Propofol 200 MG/20 ML SDV ONE (07:25)
[2023-10-20] MEDS ORDERED: ePHEDrine 50 MG/ML SDV ONE (07:25)
[2023-10-20] MEDS ORDERED: Ketamine 200 MG/20 ML MDV ONE (07:25)
[2023-10-20] MEDS ORDERED: fentaNYL 50 MCG/ML SDV ONE (07:25)
[2023-10-20] MEDS ORDERED: Ondansetron 4 MG/2 ML SDV ONE (07:25)
[2023-10-20 08:37] VITALS: BP 92/50; PULSE 78
== END 2023-10-20 08:44 | disposition home or self-care (01) ==
LOC: CC.SDS 07:00
PROVIDERS: ATTEND Family Medicine
DX: Z12.11 Encounter for screening for malignant neoplasm of colon (principal); D12.2 Benign neoplasm of ascending colon; K57.30 Diverticulosis of large intestine without perforation or abscess without bleeding; E03.9 Hypothyroidism, unspecified; E78.00 Pure hypercholesterolemia, unspecified; K21.9 Gastro-esophageal reflux disease without esophagitis; E66.9 Obesity, unspecified; Z79.899 Other long term (current) drug therapy
CPT/HCPCS: 00811; 45385; J2405; J2704; J3010; J7120; J3490